=== PATIENT | male | born 1995 | race Native Hawaiian/Other Pacific Islander ===

== ENCOUNTER 2016-07-06 22:22 | Emergency (ER) | payer OTHER ==
[~2016-07-06] VITALS: Ht 188 cm; Wt 87.1 kg
[2016-07-06 22:50] VITALS: TEMP 98.3
[2016-07-07 00:39] VITALS: BP 120/72
== END 2016-07-07 00:40 | disposition home or self-care (01) ==
LOC: ED 22:22
DX: S90.02XA Contusion of left ankle, initial encounter (principal); W20.8XXA Other cause of strike by thrown, projected or falling object, initial encounter
CPT/HCPCS: 99283

== ENCOUNTER 2016-07-23 22:33 | Emergency (ER) | payer OTHER ==
[~2016-07-23] VITALS: Ht 188 cm; Wt 85.3 kg
[2016-07-24 00:15] VITALS: BP 122/72; TEMP 99
== END 2016-07-24 00:15 | disposition home or self-care (01) ==
LOC: ED 22:33
DX: J02.9 Acute pharyngitis, unspecified (principal)
CPT/HCPCS: 87880; 99283

== ENCOUNTER 2016-07-24 23:35 | Emergency (ER) | payer OTHER ==
[~2016-07-24] VITALS: Ht 188 cm; Wt 83.5 kg
[2016-07-24 23:47] VITALS: BP 127/67; TEMP 99.7
[2016-07-25 00:33] LABS: PLATELET COUNT 185 K/uL (142-355)
== END 2016-07-25 01:05 | disposition home or self-care (01) ==
LOC: ED 23:35
DX: D72.829 Elevated white blood cell count, unspecified (principal); R10.9 Unspecified abdominal pain; J02.0 Streptococcal pharyngitis; F12.10 Cannabis abuse, uncomplicated
CPT/HCPCS: 36415; 80307; 81000; 85027; 96372; 99283; G0479; J0696

== ENCOUNTER 2016-12-25 17:22 | Emergency (ER) | payer OTHER ==
[~2016-12-25] VITALS: Ht 185.4 cm; Wt 86.2 kg
[2016-12-25 18:55] VITALS: BP 120/70; TEMP 98
== END 2016-12-25 18:57 | disposition home or self-care (01) ==
LOC: ED 17:22
DX: S70.211A Abrasion, right hip, initial encounter (principal); S80.212A Abrasion, left knee, initial encounter; S80.211A Abrasion, right knee, initial encounter; S40.211A Abrasion of right shoulder, initial encounter; S30.811A Abrasion of abdominal wall, initial encounter; S50.811A Abrasion of right forearm, initial encounter; S70.01XA Contusion of right hip, initial encounter; S50.11XA Contusion of right forearm, initial encounter; S80.02XA Contusion of left knee, initial encounter; S80.01XA Contusion of right knee, initial encounter; S40.011A Contusion of right shoulder, initial encounter; S30.1XXA Contusion of abdominal wall, initial encounter; V29.3XXA Motorcycle rider (driver) (passenger) injured in unspecified nontraffic accident, initial encounter
CPT/HCPCS: 96372; 99283; J1170